=== PATIENT | male | born 1965 | race American Indian/Alaskan Native ===

== ENCOUNTER 2018-08-12 08:06 | Emergency (ER) | payer OTHER ==
[2018-08-12 08:06] VITALS: BMI 22.7
[2018-08-12] MEDS ORDERED: Sodium Chloride 0.9% 1,000 ML IV ONE (08:26)
--- NOTE | 2018-08-12 08:26 | C.PDOC ---
History Of Present Illness 52 y/o male presents to ED after a syncope episode prior to arrival. Patient states it occurred after acute exacerbation chronic RLE paresthesia due to cervical and lumbar disc disease. Patient is on Gabapentin and NSAIDS. States has baseline paresthesia but has periodic severe burning episodes that is usually associated with lightheadedness. Patient states that when the burning episode happens, he will lay down and take it easy and wait for the episode to pass. Patient woke up this morning feeling fine and traveled to work and started work duties without any difficulty. Last episode occurred while at work and patient stated I tried to sit and relax but I just pushed through it, but had a syncope episode that was witnessed by his boss. Patient denies associated chest pain, headache, abdominal pain, or new weakness. He currently complains of pain to the back of his head from the fall, mild nausea, and chronic lower back pain. 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 PS ONSET AFTER ACUTE EXAC CHRONIC R LE PARESTHESIA. HO CHRONIC RLE PARESTHESIA DUE TO CERVICAL AND LUMBAR DISC DISEASE, ON GABAPENTIN AND NSAIDS.PS HAS BASELINE PARESTHESIA BUT HAS PERIODIC "SEVERE BURNING" EPISODES, USUALLY ASSOC W LIGHTHEADEDNESS. PS WHEN BURNING EPISODE HAPPENS, WILL LAY DOWN AND "TAKE IT EASY" AND WAIT FOR IT TO PASS. AWOKE THIS MORNING "FEELING FINE", TRAVELED TO WORK WITHOUT DIFFICULTY AND BEGAN WORK DUTIES WITHOUT DIFFICULTY. LAST EPISODE ONSET WHILE @ WORK, "I TRIED TO SIT AND RELAX BUT I JUST PUSHED THROUGH IT", +SYNCOPE WITNESSED BY BOSS. PT DENIES ASSOC PRE CHEST PAIN, BACK, ABD PAIN. CURRENTLY CO BACK OF HEAD PAIN FROM FALL, MILD NAUSEA AND CHRONIC LBP. DENIES NEW WEAKNESS. EXAM MILD DIST NONTOXIC HEENT NONTEND ATRAUM NECK SUPPLE NEURO NO FOCAL DEF EXT ATRAUM AROM SKIN WARM DRY CV RRR Time Seen by Provider: 08/12/18 08:22 Chief Complaint (Nursing): Syncope History Per: Patient History/Exam Limitations: no limitations Onset/Duration Of Symptoms: Hrs Current Symptoms Are (Timing): Still Present Past Medical History Reviewed: Historical Data, Nursing Documentation, Vital Signs Vital Signs: Last Vital Signs Temp 98.3 F 08/12/18 08:17 Pulse 69 08/12/18 08:17 Resp 20 08/12/18 08:17 BP 109/69 08/12/18 08:17 Pulse Ox 98 08/12/18 08:17 - Medical History PMH: Back Problems (2 herniated disks), HTN Denies: Anxiety, Bipolar Disorder, Depression, Personality Disorder, Post Traumatic Stress Disorder, Chronic Kidney Disease, Schizophrenia - [facility] Procedures INJECT/INFUSE NEC (06/30/14) NEBULIZER THERAPY (12/17/12) Family History: States: No Known Family Hx - Social History Hx Tobacco Use: Yes Hx Alcohol Use: Yes Hx Substance Use: Yes (occassionally) Review Of Systems Except As Marked, All Systems Reviewed And Found Negative. Constitutional: Negative for: Fever Cardiovascular: Negative for: Chest Pain Gastrointestinal: Positive for: Nausea (mild). Negative for: Vomiting, Abdominal Pain, Diarrhea Musculoskeletal: Positive for: Back Pain (lower), Other (back head pain) Neurological: Negative for: Weakness Physical Exam - Physical Exam Appears: Non-toxic, In Acute Distress (mild) Skin: Warm, Dry Head: Atraumatic, No Tenderness Eye(s): bilateral: Normal Inspection, PERRL, EOMI Nose: Normal Oral Mucosa: Moist Neck: Supple Cardiovascular: Rhythm Regular, No Murmur Respiratory: Normal Breath Sounds, No Rales, No Rhonchi, No Wheezing, Other (NA RD) Extremity: Bilateral: Atraumatic, Normal Color And Temperature, Normal ROM Neurological/Psych: Oriented x3, Normal Speech, Normal Motor, Normal Sensation, Other (No focal deficits) ED Course And Treatment - Laboratory Results Result Diagrams: 08/12/18 09:10 08/12/18 09:10 ECG: Interpreted By Ak ECG Rhythm: Sinus Rhythm ECG Interpretation: Normal Rate From EC O2 Sat by Pulse Oximetry: 98 (RA) Pulse Ox Interpretation: Normal - Radiology CXR: Interpreted by Me CXR Interpretation: Yes: No Acute Disease - Other Rad Chest X-Ray X-Ray: Read By Radiologist Interpretation: FINDINGS: LUNGS: Clear. PLEURA: No pneumothorax or pleural fluid seen. CARDIOVASCULAR: Normal. OSSEOUS STRUCTURES: No significant abnormalities. VISUALIZED UPPER ABDOMEN: Normal. OTHER FINDINGS: None. IMPRESSION: No acute cardiopulmonary disease appreciated. - CT Scan/US CT Head Other Rad Studies (CT/US): Read By Radiologist, Radiology Report Reviewed CT/US Interpretation: FINDINGS: HEMORRHAGE: No intracranial hemorrhage. BRAIN: Normal rodriguez-white matter differentiation and density are appreciated throughout the cerebrum and cerebellum with the brainstem appearing unremarkable as well. There is no mass effect. There is no suspicious extra-axial fluid collection and the midline brain anatomy appears diffusely unremarkable. VENTRICLES: Unremarkable. No hydrocephalus. CALVARIUM: No destructive bony lesion or displaced fracture identified including through the skullbase. PARANASAL SINUSES: Unremarkable as visualized. No significant inflammatory changes. MASTOID AIR CELLS: Unremarkable as visualized. No inflammatory changes. OTHER FINDINGS: None. IMPRESSION: Unremarkable noncontrast head CT. No fracture or intracranial hemorrhage appreciable. Progress - Re-Evaluation Re-evaluation Note: 08/12/18 09:[address] REPORT PENDING 08/12/18 12:38 FEELS BETTER, ASYMPT VSS. WILL DC - Data Reviewed Data Reviewed: Lab, Diagnostic imaging, EKG, Old records Medical Decision Making Medical Decision Making: Plan: --CT Head --EKG --Labs --Chest X-Ray --Magnesium Sulfate --Reglan --IV Fluids --Tylenol Disposition Counseled Patient/Family Regarding: Studies Performed, Diagnosis, Need For Followup - Disposition Referrals: YOUR,PMD [Other] Disposition: HOME/ ROUTINE Disposition Time: 12:38 Condition: IMPROVED Instructions: Syncope (Fainting) (DC) Forms: [employer] (Kazakh), Work Excuse - Clinical Impression Clinical Impression: Syncope, Chronic pain, Minor head injury - PA / INVENTORY AND PRICING ASSOCIATE / Resident Statement MD/DO has reviewed & agrees with the documentation as recorded. - Scribe Statement The provider has reviewed the documentation as recorded by the Scribe Porsche Conklin Provider Attestation: All medical record entries made by the Scribe were at my direction and personally dictated by me. I have reviewed the chart and agree that the record accurately reflects my personal performance of the history, physical exam, medical decision making, and the department course for this patient. I have also personally directed, reviewed, and agree with the discharge instructions and di sposition.
[2018-08-12] MEDS ORDERED: Magnesium Sulfate 1 gm in D5W 1 GM/100 ML BAG IVPB STA (09:02)
--- NOTE | 2018-08-12 09:04 | RAD ---
Date of service: 08/12/2018 PROCEDURE: CHEST RADIOGRAPH, 1 VIEW HISTORY: SYNCOPE COMPARISON: None available. FINDINGS: LUNGS: Clear. PLEURA: No pneumothorax or pleural fluid seen. CARDIOVASCULAR: Normal. OSSEOUS STRUCTURES: No significant abnormalities. VISUALIZED UPPER ABDOMEN: Normal. OTHER FINDINGS: None. IMPRESSION: No acute cardiopulmonary disease appreciated.
[2018-08-12 09:14] LABS: BASO % 0.7 % (0.0-2.0); EOS # 0.1 K/uL (0.0-0.7); EOS % 1.7 % (0.0-4.0); HEMOGLOBIN 13.9 g/dL (12.0-18.0); LYMPH # 1.1 K/uL (1.0-4.3); LYMPH % 20.7 % (20.0-40.0); MEAN CELL VOLUME 80.8 fL (80.0-94.0); MEAN CORPUSCULAR HEMOGLOBIN 26.8 pg (27.0-31.0); MEAN CORPUSCULAR HGB CONC 33.2 g/dL (33.0-37.0); MEAN PLATELET VOLUME 7.5 fL (7.2-11.7); MONO # 0.3 K/uL (0.0-0.8); MONO % 5.8 % (0.0-10.0); NEUT # 3.9 K/uL (1.8-7.0); NEUT % 71.1 % (50.0-75.0); RBC 5.18 Mil/uL (4.40-5.90); RED CELL DISTRIBUTION WIDTH 15.3 % (11.5-14.5); WHITE BLOOD COUNT 5.4 K/uL (4.8-10.8)
[2018-08-12] MEDS ORDERED: Sodium Chloride 0.9% 1,000 ML ONE (09:14)
[2018-08-12] MEDS ORDERED: Magnesium Sulfate 1 gm in D5W 1 GM/100 ML BAG IVPB ONE (09:14)
[2018-08-12 09:36] LABS: BLOOD UREA NITROGEN 10 mg/dL (9-20); GFR NON-AFRICAN AMERICAN > 60
--- NOTE | 2018-08-12 09:57 | CT ---
Date of service: 08/12/2018 PROCEDURE: CT HEAD WITHOUT CONTRAST. HISTORY: TRAUMA, SYNCOPE COMPARISON: None available. TECHNIQUE: Axial computed tomography images were obtained through the head/brain without intravenous contrast. Radiation dose: Total exam DLP = 1142.62 mGy-cm. This CT exam was performed using one or more of the following dose reduction techniques: Automated exposure control, adjustment of the mA and/or kV according to patient size, and/or use of iterative reconstruction technique. FINDINGS: HEMORRHAGE: No intracranial hemorrhage. BRAIN: Normal rodriguez-white matter differentiation and density are appreciated throughout the cerebrum and cerebellum with the brainstem appearing unremarkable as well. There is no mass effect. There is no suspicious extra-axial fluid collection and the midline brain anatomy appears diffusely unremarkable. VENTRICLES: Unremarkable. No hydrocephalus. CALVARIUM: No destructive bony lesion or displaced fracture identified including through the skullbase. PARANASAL SINUSES: Unremarkable as visualized. No significant inflammatory changes. MASTOID AIR CELLS: Unremarkable as visualized. No inflammatory changes. OTHER FINDINGS: None. IMPRESSION: Unremarkable noncontrast head CT. No fracture or intracranial hemorrhage appreciable.
[2018-08-12 10:20] VITALS: RESP 18
[2018-08-12 13:15] VITALS: BP 110/80; PULSE 77; TEMP 98.5; O2SAT 100
--- NOTE | 2018-08-13 12:45 | CARD ---
APPROVED REPORT Date of service: 08/12/2018 EKG Measurement Heart [id number] <Conclusion> Normal sinus rhythm Normal ECG
== END 2018-08-12 13:14 | disposition home or self-care (01) ==
LOC: C.ER 08:06
DX: S09.90XA Unspecified injury of head, initial encounter (principal); X58.XXXA Exposure to other specified factors, initial encounter; G89.29 Other chronic pain; R55 Syncope and collapse; I10 Essential (primary) hypertension; Z72.0 Tobacco use
CPT/HCPCS: 70450; 71045; 80048; 82948; 84484; 85025; 93005; 96361; 96374; 96375; 99285; J2765; J3475; J7030